=== PATIENT | female | born 1995 | race Asian ===

== ENCOUNTER 2025-03-24 22:15 | Emergency (ER) | payer OTHER ==
[2025-03-24] MEDS: Diphtheria,Pertussis(Acell),Tetanus Vaccine 0.5 ML Syringe IM ONE (23:11)
[2025-03-24] MEDS ORDERED: Lidocaine 1% with EPINEPHrine 1:100,000 20 ML MDV INJECT ONE (23:21)
[2025-03-25] MEDS: Bacitracin Oint 1 GM U/D Packet TOP ONE (00:52)
== END 2025-03-25 01:20 | disposition home or self-care (01) ==
LOC: DL.ED 22:15
DX: S01.01XA Laceration without foreign body of scalp, initial encounter (principal); Z23 Encounter for immunization; W01.198A Fall on same level from slipping, tripping and stumbling with subsequent striking against other object, initial encounter
CPT/HCPCS: 12002; 70450; 90471; 90715; 96374; 99283; A9270; J0690